=== PATIENT | female | born 1960 | race Caucasian/White ===

== ENCOUNTER 2023-11-01 02:07 | Emergency (ER) | payer SELFPAY ==
[~2023-11-01] VITALS: Ht 167.6 cm; Wt 100.0 kg
[2023-11-01 02:18] VITALS: BP 149/81; PULSE 108; RESP 19; TEMP 97.6; O2SAT 97
== END 2023-11-01 04:43 | disposition home or self-care (01) ==
LOC: ER 02:08
DX: R53.1 Weakness (principal); F41.9 Anxiety disorder, unspecified; F32.A Depression, unspecified; Z79.899 Other long term (current) drug therapy
CPT/HCPCS: 99281